=== PATIENT | female | born 1990 | race Caucasian/White ===

== ENCOUNTER 2016-10-17 11:23 | Emergency (ER) | payer OTHER ==
[~2016-10-17] VITALS: Ht 167.6 cm; Wt 108.2 kg
[~2016-10-17 11:23] MED LIST: BEE WITH C1 EACH PO; BENADRYL25 MG PO; KEFLEX500 MG PO; NEXPLANON68 MG SC; PREDNISONE10 M1 PO; UNISOM50 MG PO; VENTOLIN HFA18 GM IH; VICODIN 5-3001 EACH PO; ZOFRAN4 MG PO; [UNRECOGNIZED DRUG - REMARK]
[2016-10-17 12:48] LABS: HEMATOCRIT 42.3 % (36.0-46.0); MCH 30.2 PG (29.0-34.0); MCHC 32.9 G/DL (30.0-36.0); MCV 91.8 FL (83-99); PLATELET COUNT 207 K/uL (156-360); RBC DIS.WIDTH-CV 13.1 % (11.8-14.6); RED BLOOD COUNT 4.61 M/uL (3.80-5.20); WHITE BLOOD COUNT 7.9 K/uL (4.1-10.2)
[2016-10-17 12:57] LABS: CHLORIDE 111 mEq/L (99-109); POTASSIUM 4.2 mEq/L (3.7-5.4); SODIUM 142 mEq/L (136-147)
[2016-10-17 12:58] LABS: GLUCOSE 111 mg/dL (70-99)
[2016-10-17 13:00] LABS: ANION GAP 9 MEQ/L (2-14)
[2016-10-17 13:02] LABS: GFR ESTIMATE (CALCULATED) > 59 mL/min/
[2016-10-17 13:03] LABS: UREA NITROGEN (BUN) 10 mg/dL (9-23)
[2016-10-17 13:16] LABS: QUANTITATIVE HCG < 4.0 MIU/ML
[2016-10-17] MEDS ORDERED: PERCOCET 5/31 TABLET PO (14:26)
[2016-10-17] MEDS ORDERED: MOTRIN800 MG PO (14:26)
[2016-10-17] MEDS ORDERED: FLEXERIL10 MG PO (14:26)
[2016-10-17] MEDS ORDERED: ZOFRAN ODT4 MG PO (14:33)
[2016-10-17 15:14] VITALS: BP 138/80
== END 2016-10-17 15:14 | disposition home or self-care (01) ==
LOC: EME 11:23
DX: S22.32XA Fracture of one rib, left side, initial encounter for closed fracture (principal); R11.2 Nausea with vomiting, unspecified; F17.200 Nicotine dependence, unspecified, uncomplicated; W50.0XXA Accidental hit or strike by another person, initial encounter
CPT/HCPCS: 71020; 80048; 81003; 84702; 85027; 99281; 99285